=== PATIENT | male | born 1990 | race Hispanic/Latino ===

== ENCOUNTER 2017-08-17 10:45 | Emergency (ER) | payer SELFPAY ==
[~2017-08-17 10:45] MED LIST: DOXY100T2 PO
[2017-08-17] MEDS ORDERED: ONDANSETRON HCL MDV 20ML 2 MG/ML VIAL ONE (11:02)
[2017-08-17] MEDS ORDERED: MORPHINE SULFATE 4 MG/1ML SYG ONE (11:03)
[2017-08-17 11:14] LABS: BASOPHILS % (AUTO) 0.2 % (0.0-5.0); CREATININE 0.9 mg/dL (0.5-1.5); HEMATOCRIT 41.2 % (42-54); MEAN CORPUSCULAR HEMOGLOBIN 30.1 pg (27.0-33.0); MEAN CORPUSCULAR HGB CONC 34.8 g/dL (32.0-36.0); MEAN CORPUSCULAR VOLUME 86.4 fL (79-99); MONOCYTES % (AUTO) 5.4 % (3.0-13.0); NEUTROPHILS % (AUTO) 85.4 % (40.0-77.0); PLATELET COUNT (AUTO) 210 K/uL (130-400); RED BLOOD CELL COUNT(AUTO) 4.77 MIL/uL (4.50-6.20); RED CELL DISTRIBUTION WIDTH 13.7 % (11.0-15.5); WHITE BLOOD COUNT (AUTO) 9.5 K/uL (4.8-10.8)
[2017-08-17 11:18] LABS: ALBUMIN 3.4 g/dL (3.5-5.0); BILIRUBIN,TOTAL 0.5 mg/dL (0.2-1.0); TOTAL PROTEIN, SERUM 7.2 g/dL (6.0-8.3)
[2017-08-17 12:34] LABS: APPEARANCE,URINE Clear (CLEAR); BILIRUBIN,URINE Negative (NEGATIVE); COLOR,URINE Yellow (YELLOW); GLUCOSE, URINE (UA) Negative (NEGATIVE); KETONES,URINE Negative (NEGATIVE); LEUKOCYTE ESTERASE ,URINE Negative (NEGATIVE); NITRATE,URINE Negative (NEGATIVE); OCCULT BLOOD,URINE Negative (NEGATIVE); PH,URINE 5.5 (5.0-8.0); PROTEIN,URINE Negative (NEGATIVE); UROBILINOGEN,URINE 0.2 mg/dL (0.2-1.0)
[2017-08-17] MEDS ORDERED: DICYCLOMINE HCL 10 MG/ML 2ML AMP IM ONE (12:51)
== END 2017-08-17 14:14 | disposition home or self-care (01) ==
LOC: EDH 10:45
DX: R10.30 Lower abdominal pain, unspecified (principal); R50.9 Fever, unspecified; Z72.0 Tobacco use
CPT/HCPCS: 36415; 74176; 80053; 81003; 83690; 85025; 96372; 96374; 96375; 99285; J0500; J2270

== ENCOUNTER 2018-02-27 06:54 | Emergency (ER) | payer SELFPAY ==
[2018-02-27] MEDS ORDERED: LIDOCAINE HCL 1% 20 ML VIAL ONE (07:09)
[2018-02-27] MEDS ORDERED: HYDROCODONE/ACETAMINOPHEN 10/325 MG TAB ONE (07:23)
== END 2018-02-27 07:30 | disposition home or self-care (01) ==
LOC: EDH 06:54
DX: S50.861A Insect bite (nonvenomous) of right forearm, initial encounter (principal); Z88.2 Allergy status to sulfonamides; Z72.0 Tobacco use; W57.XXXA Bitten or stung by nonvenomous insect and other nonvenomous arthropods, initial encounter; Y93.E9 Activity, other interior property and clothing maintenance; Y92.098 Other place in other non-institutional residence as the place of occurrence of the external cause; Y99.8 Other external cause status

== ENCOUNTER 2020-04-24 21:01 | Emergency (ER) | payer OTHER ==
[2020-04-24 22:08] LABS: RAPID GROUP A STREP POSITIVE (NEGATIVE)
[2020-04-24] MEDS ORDERED: PENICILLIN G BENZATHINE LA 1.2 MILUNITS/2 ML SYG ONE (22:46)
== END 2020-04-24 23:17 | disposition home or self-care (01) ==
LOC: EDH 21:01
DX: J02.0 Streptococcal pharyngitis (principal); Z20.828 Contact with and (suspected) exposure to other viral communicable diseases; Z72.0 Tobacco use; Z88.2 Allergy status to sulfonamides
CPT/HCPCS: 71045; 87426; 87804 ×2; 87880; 96372; 99284; J0561; U0003